=== PATIENT | female | born 1960 | race Caucasian/White ===

== ENCOUNTER 2017-11-12 18:31 | Emergency (ER) | payer OTHER ==
[~2017-11-12] VITALS: Ht 154.9 cm; Wt 77.3 kg
[2017-11-12] MEDS ORDERED: HYDROcodone/acetaminophen 10/325mg tab PO STA (19:51)
[2017-11-12] MEDS ORDERED: HYDROcodone/acetaminophen 5mg/325mg tablet PO ONE (20:20)
[2017-11-12] MEDS ORDERED: HYDR-569 PO (20:24)
[2017-11-12 22:25] VITALS: BP 136/90
== END 2017-11-12 22:30 | disposition home or self-care (01) ==
LOC: ER 18:31 → EDBD 18:31 → ER 22:30
DX: S92.321A Displaced fracture of second metatarsal bone, right foot, initial encounter for closed fracture (principal); S92.331A Displaced fracture of third metatarsal bone, right foot, initial encounter for closed fracture; S92.341A Displaced fracture of fourth metatarsal bone, right foot, initial encounter for closed fracture; Z60.2 Problems related to living alone; Z88.5 Allergy status to narcotic agent; Z79.899 Other long term (current) drug therapy; W18.11XA Fall from or off toilet without subsequent striking against object, initial encounter; Y93.E1 Activity, personal bathing and showering; Y92.89 Other specified places as the place of occurrence of the external cause; Y99.8 Other external cause status
CPT/HCPCS: 29515; 73630; 99284

== ENCOUNTER 2017-11-21 09:43 | Outpatient (CLI) | payer OTHER ==
[~2017-11-21 09:43] MED LIST: HYDR-569 PO
== END 2017-11-21 10:40 | disposition home or self-care (01) ==
LOC: ORTHO 09:43
PROVIDERS: ATTEND Nurse Practitioner Family
DX: S92.324A Nondisplaced fracture of second metatarsal bone, right foot, initial encounter for closed fracture (principal); I10 Essential (primary) hypertension; F17.210 Nicotine dependence, cigarettes, uncomplicated; Z88.5 Allergy status to narcotic agent; X58.XXXA Exposure to other specified factors, initial encounter; Y93.89 Activity, other specified; Y92.89 Other specified places as the place of occurrence of the external cause; Y99.8 Other external cause status
CPT/HCPCS: 99213; L4360

== ENCOUNTER 2017-12-10 14:17 | Outpatient (CLI) | payer OTHER | END 2017-12-10 14:57 | disposition home or self-care (01) | LOC: ORTHO 14:17 | PROVIDERS: ATTEND Nurse Practitioner Family | DX: S92.324G Nondisplaced fracture of second metatarsal bone, right foot, subsequent encounter for fracture with delayed healing (principal); I10 Essential (primary) hypertension; F17.210 Nicotine dependence, cigarettes, uncomplicated; Z88.8 Allergy status to other drugs, medicaments and biological substances; X58.XXXD Exposure to other specified factors, subsequent encounter | CPT/HCPCS: 73630 ==

== ENCOUNTER 2018-01-07 13:47 | Outpatient (CLI) | payer OTHER ==
[2018-01-07 13:54] VITALS: BP 156/109
== END 2018-01-07 14:35 | disposition home or self-care (01) ==
LOC: ORTHO 13:47
PROVIDERS: ATTEND Nurse Practitioner Family
DX: S92.334G Nondisplaced fracture of third metatarsal bone, right foot, subsequent encounter for fracture with delayed healing (principal); I10 Essential (primary) hypertension; F17.210 Nicotine dependence, cigarettes, uncomplicated
CPT/HCPCS: 73630; 99213

== ENCOUNTER 2018-02-05 10:45 | Outpatient (CLI) | payer OTHER ==
[2018-02-05 10:45] VITALS: BP 148/93
== END 2018-02-05 11:17 | disposition home or self-care (01) ==
LOC: ORTHO 10:45
PROVIDERS: ATTEND Nurse Practitioner Family
DX: S92.331D Displaced fracture of third metatarsal bone, right foot, subsequent encounter for fracture with routine healing (principal); F17.210 Nicotine dependence, cigarettes, uncomplicated; I10 Essential (primary) hypertension; Z60.2 Problems related to living alone; Z88.5 Allergy status to narcotic agent; Z90.710 Acquired absence of both cervix and uterus; X58.XXXD Exposure to other specified factors, subsequent encounter
CPT/HCPCS: 73630; 99213

== ENCOUNTER 2018-05-27 14:03 | Outpatient (CLI) | payer OTHER ==
[~2018-05-27 14:03] MED LIST changes: +HYDR-4383 PO; -HYDR-569 PO
[2018-05-27 14:07] VITALS: BP 162/112
== END 2018-05-27 15:00 | disposition home or self-care (01) ==
LOC: ORTHO 14:03
PROVIDERS: ATTEND Nurse Practitioner Family
DX: M19.071 Primary osteoarthritis, right ankle and foot (principal); M85.871 Other specified disorders of bone density and structure, right ankle and foot; F17.210 Nicotine dependence, cigarettes, uncomplicated; I10 Essential (primary) hypertension; Z60.2 Problems related to living alone; Z88.5 Allergy status to narcotic agent
CPT/HCPCS: 73630; 99213

== ENCOUNTER 2021-05-27 12:43 | Inpatient (IN) | payer OTHER ==
[~2021-05-27] VITALS: Ht 154.9 cm; Wt 81.8 kg
[2021-05-27] MEDS ORDERED: aspirin 325mg tablet PO ONE (13:00)
[2021-05-27] MEDS ORDERED: nitroGLYCERIN 0.4mg SUBLingual tab SL PRN ×4 (13:00→20:50)
[2021-05-27] MEDS ORDERED: nitroGLYCERIN 0.4mg/hour patch TD ONE (13:00)
--- NOTE | 2021-05-27 13:20 | NUR ---
FIRST CONTACT WITH PT. PRESENTS WITH CHEST PAIN 03/26, PT FOUND WITH HAND GRASPING CHEST, TACHYPNEIC D/T PAIN. PIV STARTED, MEDS FIVEN PER EMAR. PT PUT ON CAT HOOKER. PROVIDER AT BEDSIDE. SON UPDATED PT'S CELL PHONE. WILL CLOSELY MONITOR.
[2021-05-27] MEDS ORDERED: morphine 4 MG/ML inj SYRINge IV ONE (13:25)
[2021-05-27] MEDS ORDERED: ondansetron/PF 4mg/2ml inj IV ONE (13:25)
[2021-05-27 13:26] LABS: BASOPHILS # (AUTO) 0.1 X10'3 (0-0.2); BASOPHILS % (AUTO) 0.8 % (0-1); EOSINOPHILS # (AUTO) 0.1 X10'3 (0-0.9); HEMATOCRIT 45.4 % (35.0-45.0); HEMOGLOBIN 15.4 g/dl (12.0-16.0); LYMPHOCYTES # (AUTO) 2.9 X10'3 (1.1-4.8); LYMPHOCYTES % (AUTO) 31.2 % (21-51); MEAN CORPUSCULAR HEMOGLOBIN 29.6 PG (27.0-31.0); MEAN CORPUSCULAR VOLUME 87.2 FL (78-98); MEAN PLATELET VOLUME 6.7 FL (7.4-10.4); MONOCYTES # (AUTO) 0.5 X10'3 (0-0.9); MONOCYTES % (AUTO) 5.3 % (2-12); NEUTROPHILS # (AUTO) 5.7 X10'3 (1.8-7.7); NEUTROPHILS % (AUTO) 61.7 % (42-75); PLATELET COUNT 470 X10'3 (140-440); RED BLOOD COUNT 5.21 X10'6 (4.20-5.60); RED CELL DISTRIBUTION WIDTH 15.2 % (11.5-14.5); WHITE BLOOD COUNT 9.3 X10'3 (4.5-11.0)
[2021-05-27 13:33] LABS: PARTIAL THROMBOPLASTIN TIME 30 SECONDS (22-32)
[2021-05-27 13:34] LABS: ALANINE AMINOTRANSFERASE 49 U/L (12-78); ALBUMIN 3.9 G/DL (3.4-5.0); ALKALINE PHOSPHATASE 131 IU/L (46-116); ANION GAP 11 (8-16); ASPARTATE AMINO TRANSFERASE 29 U/L (10-37); BILIRUBIN,TOTAL 0.3 MG/DL (0.1-1.0); BLOOD UREA NITROGEN 10 MG/DL (7-18); CHLORIDE 101 MMOL/L (99-107); CREATININE 0.77 MG/DL (0.40-0.90); GLUCOSE 126 MG/DL (70-104); SODIUM 138 MMOL/L (135-145); TOTAL CARBON DIOXIDE 26.3 MMOL/L (24-32); TOTAL PROTEIN 7.7 G/DL (6.4-8.2); eGFR 76 ML/MIN
--- NOTE | 2021-05-27 13:45 | NUR ---
PT REPORTS PAIN 4/10 AFTER MORPHINE ADMIN, NITRO PATCH PLACED WELL. WILL CONT TO MONITOR.
[2021-05-27 13:46] LABS: MAGNESIUM 2.1 MG/DL (1.5-2.4)
[2021-05-27] MEDS ORDERED: iohexol 350MG/ML 100ml bottle IV ONE ×3 (14:16→19:09)
[2021-05-27 14:32] LABS: D-DIMER 0.34 MG/L FEU (0-0.50)
--- NOTE | 2021-05-27 14:45 | NUR ---
PT AMBULATED WITH STEADY GAIT TO/FROM RESTROOM WITHOUT INCIDENT.
[2021-05-27 15:10] LABS: CLARITY,URINE CLEAR (Clear); COLOR,URINE YELLOW (Yellow); GLUCOSE, URINE NEGATIVE (Neg); KETONES,URINE NEGATIVE (Neg); LEUKOCYTE ESTERASE ,URINE NEGATIVE (Neg); NITRITES, URINE NEGATIVE (Neg); OCCULT BLOOD,URINE NEGATIVE (Neg); PROTEIN,URINE NEGATIVE (Neg); UROBILINOGEN,URINE 0.2 E.U/dL (0.2-1.0)
[2021-05-27 15:15] LABS: URINE AMPHETAMINE SCREEN NEGATIVE (Neg); URINE BARBITUATE SCREEN NEGATIVE (Neg); URINE BENZODIAZEPINES SCREEN POSITIVE (Neg); URINE CANNABINOID SCREEN POSITIVE (Neg); URINE COCAINE SCREEN NEGATIVE (Neg); URINE METHADONE SCREEN NEGATIVE (Neg); URINE OPIATE SCREEN POSITIVE (Neg); URINE PHENCYCLIDINE SCREEN NEGATIVE (Neg)
[2021-05-27 15:16] LABS: UA COLLECTION TYPE NON-SPECIFIED
[2021-05-27] MEDS ORDERED: heparin 10,000 units/1 ML INJ IV ONE ×3 (15:40→16:00)
[2021-05-27] MEDS ORDERED: heparin 10,000 units/1 ML INJ IV PRN ×2 (15:40→16:00)
[2021-05-27] MEDS ORDERED: heparin 25,000 UNIT/250ml bag 250 ML IV SCH ×2 (15:40→16:00)
[2021-05-27] MEDS ORDERED: ondansetron/PF 4mg/2ml inj IV PRN ×2 (16:00→20:50)
[2021-05-27] MEDS ORDERED: magnesium hydroxide 30ml (MOM) UD suspension PO PRN (16:00)
[2021-05-27] MEDS ORDERED: magnesium 4gm in 100ml NS 100 ML IV PRN (16:00)
[2021-05-27] MEDS ORDERED: morphine 2 MG/ML inj. syringe IV PRN (16:00)
[2021-05-27] MEDS ORDERED: aminophylline 250mg/10ml inj. IV PRN (16:00)
[2021-05-27] MEDS ORDERED: acetaminophen 325mg tablet PO PRN ×3 (16:00→20:50)
[2021-05-27] MEDS ORDERED: ondansetron 4mg rapidly disintigrating tab PO PRN (16:00)
[2021-05-27] MEDS ORDERED: metoclopramide 5 mg/ml inj IV PRN (16:00)
[2021-05-27] MEDS ORDERED: regadenoson 0.4mg/5ml syringe IV PRN (16:00)
[2021-05-27] MEDS ORDERED: magnesium Cl slow-release 64mg tablet PO PRN (16:00)
[2021-05-27] MEDS ORDERED: magnesium 2GM in 50ml NS 50 ML IV PRN (16:00)
[2021-05-27] MEDS ORDERED: metoprolol tartrate 1mg/ml inj IV PRN (16:00)
[2021-05-27] MEDS ORDERED: potassium CL 10mEq/100ml bag 100 ML IV PRN (16:00)
[2021-05-27] MEDS ORDERED: mag hydrox/Alum hydrox/simeth 30ml oral suspension PO PRN (16:00)
[2021-05-27] MEDS ORDERED: PERFLUTREN PROTEIN-A MICROSPHR (Optison) 0.22 MG/ML 3ML VIAL IV ONE (16:00)
[2021-05-27] MEDS ORDERED: potassium Cl 20 mEq SR tablet PO PRN ×2 (16:00)
[2021-05-27] MEDS ORDERED: HYDROcodone/acetaminophen 10/325mg tab PO PRN (16:00)
[2021-05-27] MEDS ORDERED: HYDROcodone/acetaminophen 5mg/325mg tablet PO PRN ×2 (16:00→20:50)
[2021-05-27] MEDS ORDERED: bisacodyl 10mg suppository rectal RC PRN (16:00)
[2021-05-27] MEDS ORDERED: acetaminophen 650mg rectal suppository RC PRN (16:00)
[2021-05-27] MEDS ORDERED: NO HOME MEDS (16:18)
--- NOTE | 2021-05-27 16:40 | NUR ---
O2 REMOVED FROM PT, NOW SATTING 96% ON RA.
[2021-05-27 16:58] LABS: ETHANOL < 0.010 GM/DL (0.0-0.010)
[2021-05-27] MEDS ORDERED: nicotine 14mg patch - 24hr TD ONE (17:25)
[2021-05-27] MEDS ORDERED: LORazepam 2 mg/ml vial IV PRN (17:25)
--- NOTE | 2021-05-27 17:42 | NUR ---
DR. CANCINO AT BEDSIDE. PT WILL BE GOING TO [employer] [facility]IE[facility] IN 30 MINUTES.
[2021-05-27] MEDS: normal saline 1000ml 1,000 ML IV SCH (17:54)
--- NOTE | 2021-05-27 17:55 | NUR ---
SECOND PIV STARTED, GROIN SHAVED, FLUIDS STARTED.
[2021-05-27] MEDS ORDERED: LIDOcaine 1% (10mg/ml)w/preservative injection 20ml MDV ONE (18:04)
[2021-05-27] MEDS ORDERED: fentaNYL/PF 50MCG/1 ML 2ML syringe ONE (18:04)
[2021-05-27] MEDS ORDERED: midazolam 1 mg/ML 2ml injection ONE (18:04)
[2021-05-27] MEDS ORDERED: iohexol 350 MG/ML 50ML vial IV ONE (18:05)
[2021-05-27] MEDS ORDERED: heparin 1,000unit/ml 10ml vial 10 ML ONE (18:05)
--- NOTE | 2021-05-27 18:26 | NUR ---
VERBAL REPORT TO DIRECTOR TALENT NURSE, PT TAKEN TO DIRECTOR TALENT AT THIS TIME.
[2021-05-27] MEDS ORDERED: diphenhydrAMINE 50 mg/ml inj ONE (18:27)
[2021-05-27] MEDS ORDERED: tirofiban 5mg in NS 100mL 100 ML IV ONE (18:51)
[2021-05-27] MEDS ORDERED: morphine 2 MG/ML inj. syringe ONE (19:01)
[2021-05-27] MEDS ORDERED: ticagrelor 90mg tablet ONE (19:26)
[2021-05-27 20:00] VITALS: BP 106/67
[2021-05-27] MEDS: K and/or MAG REPLACEMENT MC SCH (20:00)
[2021-05-27] MEDS: docusate sod 100mg capsule PO SCH (20:00)
[2021-05-27] MEDS ORDERED: metoprolol tartrate 12.5mg (1/2 tablet) PO SCH (20:00)
[2021-05-27] MEDS ORDERED: normal saline 1000ml 1,000 ML IV SCH (20:50)
[2021-05-27] MEDS ORDERED: OXAZEpam 15mg capsule PO PRN (20:50)
[2021-05-27] MEDS ORDERED: proCHLORperazine 10 MG/2 ml inj IV PRN (20:50)
[2021-05-27 21:00] VITALS: BP 107/80
[2021-05-27] MEDS ORDERED: temazepam 15mg capsule PO PRN (21:00)
[2021-05-27] MEDS: cyclobenzaprine 10mg tablet PO PRN (21:02)
[2021-05-27] MEDS: nicotine 14mg patch - 24hr TD SCH (21:04)
[2021-05-27] MEDS: tirofiban 5mg in NS 100mL 100 ML IV SCH (21:59)
[2021-05-27 22:00] VITALS: BP 136/79
[2021-05-27] MEDS: morphine 2 MG/ML inj. syringe IV PRN (22:38)
[2021-05-27 23:00] VITALS: BP 122/82
[2021-05-28] VITALS (19 sets, daily range): BP systolic 103–147; BP diastolic 50–85
[2021-05-28] MEDS: HYDROcodone/acetaminophen 10/325mg tab PO PRN ×3 (00:31→12:15)
[2021-05-28] MEDS: normal saline 1000ml 1,000 ML IV SCH ×2 (02:00→12:00)
[2021-05-28] MEDS: tirofiban 5mg in NS 100mL 100 ML IV SCH (02:49)
[2021-05-28 03:07] LABS: BASOPHILS # (AUTO) 0.1 X10'3 (0-0.2); BASOPHILS % (AUTO) 0.5 % (0-1); EOSINOPHILS # (AUTO) 0.1 X10'3 (0-0.9); EOSINOPHILS % (AUTO) 0.8 % (0-6); HEMATOCRIT 38.6 % (35.0-45.0); HEMOGLOBIN 12.8 g/dl (12.0-16.0); LYMPHOCYTES # (AUTO) 2.5 X10'3 (1.1-4.8); LYMPHOCYTES % (AUTO) 24.1 % (21-51); MEAN CORPUSCULAR HEMOGLOBIN 29.1 PG (27.0-31.0); MEAN CORPUSCULAR HGB CONC 33.1 g/dL (33.0-36.5); MEAN CORPUSCULAR VOLUME 87.9 FL (78-98); MONOCYTES # (AUTO) 0.8 X10'3 (0-0.9); MONOCYTES % (AUTO) 7.4 % (2-12); NEUTROPHILS # (AUTO) 6.9 X10'3 (1.8-7.7); NEUTROPHILS % (AUTO) 67.2 % (42-75); PLATELET COUNT 386 X10'3 (140-440); RED BLOOD COUNT 4.39 X10'6 (4.20-5.60); RED CELL DISTRIBUTION WIDTH 15.4 % (11.5-14.5); WHITE BLOOD COUNT 10.2 X10'3 (4.5-11.0)
[2021-05-28 03:21] LABS: ALANINE AMINOTRANSFERASE 70 U/L (12-78); ALBUMIN 3.2 G/DL (3.4-5.0); ALBUMIN/GLOBULIN RATIO 1.1 (1.1-1.5); ALKALINE PHOSPHATASE 111 IU/L (46-116); ANION GAP 10 (8-16); ASPARTATE AMINO TRANSFERASE 49 U/L (10-37); BILIRUBIN,TOTAL 0.3 MG/DL (0.1-1.0); BLOOD UREA NITROGEN 12 MG/DL (7-18); BUN/CREATININE RATIO 18.2 (6.6-38.0); CALCIUM 8.6 MG/DL (8.5-10.1); CHLORIDE 103 MMOL/L (99-107); CHOL/HDL RATIO 6.9 (0.00-4.99); CHOLESTEROL 242 MG/DL (0-200); CREATININE 0.66 MG/DL (0.40-0.90); GLUCOSE 110 MG/DL (70-104); HDL CHOLESTEROL 35 MG/DL (35-60); LDL CHOLESTEROL 140 MG/DL (50-100); MAGNESIUM 2.1 MG/DL (1.5-2.4); POTASSIUM 3.7 MMOL/L (3.5-5.1); SODIUM 139 MMOL/L (135-145); TOTAL CARBON DIOXIDE 25.6 MMOL/L (24-32); TOTAL PROTEIN 6.2 G/DL (6.4-8.2); TRIGLYCERIDES 465 MG/DL (20-135); eGFR > 90 ML/MIN
--- NOTE | 2021-05-28 06:00 | NUR ---
Patient in room ICU 2045. I have received report from Jerry JANE and had the opportunity to ask questions and assume patient care.
[2021-05-28] MEDS: K and/or MAG REPLACEMENT MC SCH ×2 (08:00→20:00)
[2021-05-28] MEDS ORDERED: enoxaparin 40mg/0.4ml syringe SUBCUT SCH (08:00)
[2021-05-28] MEDS: ticagrelor 90mg tablet PO SCH ×2 (08:36→20:56)
[2021-05-28] MEDS: metoprolol tartrate 12.5mg (1/2 tablet) PO SCH ×2 (08:36→20:57)
[2021-05-28] MEDS: docusate sod 100mg capsule PO SCH ×2 (08:36→20:56)
[2021-05-28] MEDS: nicotine 14mg patch - 24hr TD SCH (08:37)
[2021-05-28] MEDS: aspirin 81mg, enteric-coated 1 TAB TABLET.DR PO SCH (08:37)
[2021-05-28] MEDS: cyclobenzaprine 10mg tablet PO PRN (08:55)
[2021-05-28] MEDS: morphine 2 MG/ML inj. syringe IV PRN (10:09)
[2021-05-28 16:48] LABS: CLARITY,URINE SLIGHTLY CLOUDY (Clear); GLUCOSE, URINE NEGATIVE (Neg); KETONES,URINE NEGATIVE (Neg); LEUKOCYTE ESTERASE ,URINE NEGATIVE (Neg); NITRITES, URINE NEGATIVE (Neg); OCCULT BLOOD,URINE MODERATE (Neg); PROTEIN,URINE NEGATIVE (Neg); UROBILINOGEN,URINE 0.2 E.U/dL (0.2-1.0)
[2021-05-28 16:55] LABS: COLOR,URINE STRAW (Yellow); UA COLLECTION TYPE FOLEY CATH
[2021-05-28 17:04] LABS: BACTERIA,URINE FEW /HPF (Neg); MUCUS STRANDS FEW /LPF (Neg); RBC,URINE 20-50 /HPF (0-2); SQUAMOUS EPITHELIAL CELL,UR NONE SEEN /LPF (FEW); WBC,URINE 0-4 /HPF (0-4)
--- NOTE | 2021-05-28 18:29 | NUR ---
Problems reprioritized. Patient report given, questions answered & plan of care reviewed with Kailey JANE.
--- NOTE | 2021-05-28 22:00 | NUR ---
Patient transfer from ICU into PCU room 3012B in a stable condition, no signs of distress noted oriented to room call light within reach bed in lower position will continue to monitor and report changes
[2021-05-29] MEDS: HYDROcodone/acetaminophen 10/325mg tab PO PRN (01:43)
[2021-05-29 06:00] VITALS: BP 127/83
--- NOTE | 2021-05-29 06:35 | NUR ---
Problems reprioritized. Patient report given, questions answered & plan of care reviewed with Steff JANE .
--- NOTE | 2021-05-29 06:42 | NUR ---
Patient in room PCU 3012. I have received report from Andria JANE and had the opportunity to ask questions and assume patient care. Patient resting in bed in no acute distress.
--- NOTE | 2021-05-29 06:45 | NUR ---
Patient in room PCU 3012. I have received report from Andria JANE and had the opportunity to ask questions and assume patient care.
[2021-05-29 07:02] LABS: BASOPHILS # (AUTO) 0.1 X10'3 (0-0.2); BASOPHILS % (AUTO) 1.1 % (0-1); EOSINOPHILS # (AUTO) 0.1 X10'3 (0-0.9); EOSINOPHILS % (AUTO) 0.5 % (0-6); HEMATOCRIT 38.9 % (35.0-45.0); HEMOGLOBIN 12.8 g/dl (12.0-16.0); LYMPHOCYTES # (AUTO) 2.6 X10'3 (1.1-4.8); MEAN CORPUSCULAR HGB CONC 32.9 g/dL (33.0-36.5); MEAN CORPUSCULAR VOLUME 88.1 FL (78-98); MEAN PLATELET VOLUME 7.1 FL (7.4-10.4); MONOCYTES # (AUTO) 0.9 X10'3 (0-0.9); MONOCYTES % (AUTO) 7.5 % (2-12); NEUTROPHILS # (AUTO) 8.6 X10'3 (1.8-7.7); NEUTROPHILS % (AUTO) 69.9 % (42-75); PLATELET COUNT 357 X10'3 (140-440); RED BLOOD COUNT 4.42 X10'6 (4.20-5.60); RED CELL DISTRIBUTION WIDTH 14.8 % (11.5-14.5); WHITE BLOOD COUNT 12.3 X10'3 (4.5-11.0)
[2021-05-29 07:28] LABS: ALANINE AMINOTRANSFERASE 60 U/L (12-78); ALBUMIN 3.1 G/DL (3.4-5.0); ALBUMIN/GLOBULIN RATIO 0.9 (1.1-1.5); ALKALINE PHOSPHATASE 111 IU/L (46-116); ANION GAP 11 (8-16); ASPARTATE AMINO TRANSFERASE 28 U/L (10-37); BILIRUBIN,TOTAL 0.3 MG/DL (0.1-1.0); BLOOD UREA NITROGEN 9 MG/DL (7-18); CALCIUM 8.5 MG/DL (8.5-10.1); CHLORIDE 104 MMOL/L (99-107); GLUCOSE 115 MG/DL (70-104); POTASSIUM 4.1 MMOL/L (3.5-5.1); SODIUM 139 MMOL/L (135-145); TOTAL CARBON DIOXIDE 24.3 MMOL/L (24-32); TOTAL PROTEIN 6.7 G/DL (6.4-8.2); eGFR > 90 ML/MIN
[2021-05-29] MEDS: K and/or MAG REPLACEMENT MC SCH (08:00)
[2021-05-29] MEDS: docusate sod 100mg capsule PO SCH (09:48)
[2021-05-29] MEDS: aspirin 81mg, enteric-coated 1 TAB TABLET.DR PO SCH (09:48)
[2021-05-29] MEDS: metoprolol tartrate 12.5mg (1/2 tablet) PO SCH (09:48)
[2021-05-29] MEDS: ticagrelor 90mg tablet PO SCH (09:48)
[2021-05-29] MEDS: nicotine 14mg patch - 24hr TD SCH (09:49)
[2021-05-29 11:00] VITALS: BP 144/69
[2021-05-29] MEDS ORDERED: ATOR40TA PO (11:50)
[2021-05-29] MEDS ORDERED: NICO-631 TD (11:50)
[2021-05-29] MEDS ORDERED: LOP12.5T PO (11:50)
[2021-05-29] MEDS ORDERED: TICA90TA PO (11:50)
[2021-05-29] MEDS ORDERED: NITR0.4T51 SL (11:50)
[2021-05-29] MEDS ORDERED: ASPI-1071 PO (11:50)
--- NOTE | 2021-05-29 13:32 | NUR ---
Patient is stable for discharge per MD orders. All discharge instructions reviewed with patient and all questions answered. New prescriptions called into [facility] in [place]. PIV discontinued, cannula intact. Mora discontinued cannula intact. Telemetry discontinued. Belongings collected and sent with patient. Patient wheeled to lobby and picked up by family member.
--- NOTE | 2021-05-29 14:22 | NUR ---
[place] documentation: I have reviewed and agree with all interventions, assessments performed and documented by Anel JANE.
--- NOTE | 2021-05-29 14:23 | NUR ---
[place] Medication Administration: For this medication-pass time frame, all medication were reviewed, dispensed, administered and documented per hospital policy by Anel JANE .
== END 2021-05-29 13:15 | disposition home or self-care (01) | DRG 247 ==
LOC: ER 12:43 → ED HOLD 16:09 → ICU 2S 20:36 → PCU 3S 05-28 19:30
PROVIDERS: ADMIT Family Medicine; ATTEND Family Medicine
PROC: 4A023N7 Measurement of Cardiac Sampling and Pressure, Left Heart, Percutaneous Approach (ICD-10-PCS; principal; 2021-05-27)
PROC: 027034Z Dilation of Coronary Artery, One Artery with Drug-eluting Intraluminal Device, Percutaneous Approach (ICD-10-PCS; 2021-05-27)
PROC: B2111ZZ Fluoroscopy of Multiple Coronary Arteries using Low Osmolar Contrast (ICD-10-PCS; 2021-05-27)
PROC: B2151ZZ Fluoroscopy of Left Heart using Low Osmolar Contrast (ICD-10-PCS; 2021-05-27)
PROC: B41F1ZZ Fluoroscopy of Right Lower Extremity Arteries using Low Osmolar Contrast (ICD-10-PCS; 2021-05-27)
PROC: B31N1ZZ Fluoroscopy of Other Upper Arteries using Low Osmolar Contrast (ICD-10-PCS; 2021-05-27)
PROC: B32T1ZZ Computerized Tomography (CT Scan) of Left Pulmonary Artery using Low Osmolar Contrast (ICD-10-PCS; 2021-05-27)
PROC: B3201ZZ Computerized Tomography (CT Scan) of Thoracic Aorta using Low Osmolar Contrast (ICD-10-PCS; 2021-05-27)
PROC: B32S1ZZ Computerized Tomography (CT Scan) of Right Pulmonary Artery using Low Osmolar Contrast (ICD-10-PCS; 2021-05-27)
DX: I21.4 Non-ST elevation (NSTEMI) myocardial infarction (principal); E66.01 Morbid (severe) obesity due to excess calories; E78.5 Hyperlipidemia, unspecified; I10 Essential (primary) hypertension; Z20.822 Contact with and (suspected) exposure to COVID-19; I49.3 Ventricular premature depolarization; E78.00 Pure hypercholesterolemia, unspecified; G89.4 Chronic pain syndrome; Z60.9 Problem related to social environment, unspecified; F41.1 Generalized anxiety disorder; I25.119 Atherosclerotic heart disease of native coronary artery with unspecified angina pectoris; M48.07 Spinal stenosis, lumbosacral region; F17.210 Nicotine dependence, cigarettes, uncomplicated; R91.1 Solitary pulmonary nodule; Z60.2 Problems related to living alone; K21.9 Gastro-esophageal reflux disease without esophagitis; M54.9 Dorsalgia, unspecified; R00.0 Tachycardia, unspecified; Z73.3 Stress, not elsewhere classified; Z79.899 Other long term (current) drug therapy; Z82.3 Family history of stroke; Z88.5 Allergy status to narcotic agent; Z90.711 Acquired absence of uterus with remaining cervical stump; Z68.34 Body mass index [BMI] 34.0-34.9, adult; Z90.49 Acquired absence of other specified parts of digestive tract; Z71.6 Tobacco abuse counseling
CPT/HCPCS: 93306; 93458; 96374; 96375; 99285; C9606; 36415; 71045; 71275; 80053; 80061; 80305; 80320; 81001; 81003; 83735; 83880; 84443; 84484; 85025; 85347; 85379; 85610; 85730; 93005; 99152; 99153; A4620; A6258; A6449; C1725; C1751; C1760; C1769; C1874; C1894; G0378; J0780; J1200; J1644; J2060; J2250; J2270; J2405; J3010; J3246; J3490; J7030; Q9967; U0003; U0005

== ENCOUNTER 2023-04-29 14:29 | Day surgery (SDC) | payer BC ==
[2023-04-26 14:27] LABS: BASOPHILS # (AUTO) 0.1 X10'3 (0-0.2); EOSINOPHILS # (AUTO) 0.1 X10'3 (0-0.9); EOSINOPHILS % (AUTO) 1.1 % (0-6); HEMATOCRIT 47.5 % (35.0-45.0); HEMOGLOBIN 15.3 g/dl (12.0-16.0); LYMPHOCYTES # (AUTO) 3.3 X10'3 (1.1-4.8); LYMPHOCYTES % (AUTO) 29.5 % (21-51); MEAN CORPUSCULAR HEMOGLOBIN 27.8 PG (27.0-31.0); MEAN CORPUSCULAR HGB CONC 32.3 g/dL (33.0-36.5); MEAN CORPUSCULAR VOLUME 86.1 FL (78-98); MONOCYTES # (AUTO) 0.5 X10'3 (0-0.9); MONOCYTES % (AUTO) 4.8 % (2-12); NEUTROPHILS # (AUTO) 7.2 X10'3 (1.8-7.7); NEUTROPHILS % (AUTO) 63.6 % (42-75); PLATELET COUNT 398 X10'3 (140-440); RED BLOOD COUNT 5.51 X10'6 (4.20-5.60); RED CELL DISTRIBUTION WIDTH 16.1 % (11.5-14.5); WHITE BLOOD COUNT 11.3 X10'3 (4.5-11.0)
[2023-04-26 14:42] LABS: APTT 29 SECONDS (22-32); PROTHROMBIN TIME 9.8 SECONDS (9.0-12.0)
[2023-04-26 14:44] LABS: ALBUMIN 3.8 G/DL (3.4-5.0); ANION GAP 9 (8-16); BLOOD UREA NITROGEN 10 MG/DL (7-18); BUN/CREATININE RATIO 14.7 (10.0-20.0); CALCIUM 9.1 MG/DL (8.5-10.1); CHLORIDE 101 MMOL/L (99-107); CHOLESTEROL 159 MG/DL (0-200); CREATININE 0.68 MG/DL (0.40-0.90); GLUCOSE 126 MG/DL (70-104); HDL CHOLESTEROL 40 MG/DL (35-60); LDL CHOLESTEROL 77 MG/DL (50-100); SODIUM 137 MMOL/L (135-145); TOTAL CARBON DIOXIDE 27.3 MMOL/L (24-32); TRIGLYCERIDES 333 MG/DL (20-135); eGFR 87 ML/MIN
[2023-04-26 14:45] LABS: INR 0.9 INR
[~2023-04-29] VITALS: Ht 154.9 cm; Wt 100.6 kg
[~2023-04-29 14:29] MED LIST changes: +ASPI-1071 PO; -HYDR-4383 PO; +LOP12.5T PO; +NICO-631 TD; +NITR0.4T51 SL; +TICA90TA PO
[2023-04-29 14:54] VITALS: BP 139/104; PULSE 103; RESP 16; TEMP 98; O2SAT 90
[2023-04-29] MEDS ORDERED: GABA300C PO (14:59)
[2023-04-29] MEDS ORDERED: ISOS60TA71 PO (14:59)
[2023-04-29] MEDS ORDERED: CLOP75TA34 PO (14:59)
[2023-04-29] MEDS ORDERED: OMEP20CA16 PO (14:59)
[2023-04-29] MEDS ORDERED: LOSA100T58 PO (14:59)
[2023-04-29] MEDS ORDERED: ATOR40TA72 PO (14:59)
[2023-04-29] MEDS ORDERED: METO50TA16 PO (14:59)
[2023-04-29] MEDS ORDERED: DILT120T3 PO (14:59)
[2023-04-29] MEDS ORDERED: diphenhydrAMINE 25mg capsule PO PRN (15:05)
[2023-04-29] MEDS ORDERED: LORazepam 0.5 MG tablet PO PRN (15:05)
[2023-04-29] MEDS ORDERED: normal saline 1,000 ML IV SCH (15:05)
[2023-04-29 15:50] VITALS: RESP 16; O2SAT 92
[2023-04-29] MEDS ORDERED: NITR0.4T51 SL (16:31)
[2023-04-29] MEDS ORDERED: ASPI-1053 PO (16:31)
[2023-04-29] MEDS ORDERED: heparin 1,000unit/ml 10ml vial 10 ML ONE (17:43)
[2023-04-29] MEDS ORDERED: LIDOcaine 1% (10mg/ml) 2ml vial ONE (17:43)
[2023-04-29] MEDS ORDERED: midazolam 1 mg/ML 2ml injection ONE ×2 (17:43→18:27)
[2023-04-29] MEDS ORDERED: fentaNYL/PF 50MCG/1 ML 2ML syringe ONE (17:43)
[2023-04-29] MEDS ORDERED: iohexol 350MG/ML 100ml bottle IV ONE (17:43)
[2023-04-29] MEDS ORDERED: verapamil 2.5 mg/ml inj IV ONE (17:43)
[2023-04-29] MEDS ORDERED: heparin 1,000 UNITS/NS 500ml 500 ML ONE ×2 (17:44)
[2023-04-29] MEDS ORDERED: nitroGLYCERIN 500mcg/5mL D5W 5 ML IV ONE (17:58)
[2023-04-29 18:59] VITALS: BP 133/88; PULSE 100; RESP 16; O2SAT 92
[2023-04-29 19:17] VITALS: BP 162/110; PULSE 103; RESP 16; O2SAT 95
[2023-04-29 19:30] VITALS: BP 169/97; PULSE 105; RESP 16; O2SAT 95
[2023-04-29 19:45] VITALS: BP 157/81; PULSE 104; RESP 16; O2SAT 95
== END 2023-04-29 20:20 | disposition home or self-care (01) ==
LOC: SSTAY O 14:29
PROVIDERS: ATTEND Student in an Organized Health Care Education/Training Program
DX: I25.118 Atherosclerotic heart disease of native coronary artery with other forms of angina pectoris (principal); E78.5 Hyperlipidemia, unspecified; I10 Essential (primary) hypertension; F41.9 Anxiety disorder, unspecified; I25.2 Old myocardial infarction; Z87.891 Personal history of nicotine dependence; Z79.82 Long term (current) use of aspirin; Z79.899 Other long term (current) drug therapy; Z79.01 Long term (current) use of anticoagulants; Z95.5 Presence of coronary angioplasty implant and graft; Z88.5 Allergy status to narcotic agent
CPT/HCPCS: 36415; 80048; 80061; 85025; 85610; 85730; 93005; 93458; 99152; 99153; J1644; J2250; J3010; J3490; J7030; Q0163; Q9967; A4615; A6258; A6402; C1894